=== PATIENT | male | born 1990 | race Caucasian/White ===

== ENCOUNTER 2023-08-22 06:43 | Emergency (ER) | payer MEDICAID ==
[~2023-08-22] VITALS: Ht 177.8 cm; Wt 95.5 kg
[2023-08-22 07:02] VITALS: TEMP 98.4
[2023-08-22 07:10] VITALS: BP 169/93; PULSE 78; RESP 14
[2023-08-22] MEDS ORDERED: DOXYCYCLINE HYCLATE 100 MG TABLET PO ONE (07:15)
[2023-08-22] MEDS ORDERED: CefTRIAXone SODIUM 1 GM/VIAL IM ONE (07:15)
[2023-08-22] MEDS ORDERED: LIDOCAINE/PF 1% 2 ML VIAL IM ONE (07:15)
[2023-08-22 07:19] LABS: APPEARANCE,URINE CLEAR (CLEAR); BILIRUBIN,URINE NEGATIVE (NEGATIVE); COLOR,URINE COLORLESS (YELLOW); GLUCOSE, URINE (UA) NEGATIVE (NEGATIVE); KETONES,URINE NEGATIVE (NEGATIVE); LEUKOCYTE ESTERASE ,URINE NEGATIVE (NEGATIVE); NITRATE,URINE NEGATIVE (NEGATIVE); OCCULT BLOOD,URINE NEGATIVE (NEGATIVE); PH,URINE 6.5 (5.0-8.0); PROTEIN,URINE NEGATIVE (NEGATIVE); SPECIFIC GRAVITIY, URINE 1.006 (1.003-1.030); UROBILINOGEN,URINE <=1.0 mg/dL (<=1.0)
[2023-08-22] MEDS ORDERED: RALTEGRAVIR 400 MG TABLET PO ONE (08:15)
[2023-08-22] MEDS ORDERED: EMTRICITABINE/TENOFOVIR 200-300 MG TABLET PO ONE (08:15)
[2023-08-22 08:24] LABS: ANION GAP 9 mmol/L (8-16); CALCIUM, TOTAL 9.4 mg/dL (8.8-10.5); CARBON DIOXIDE 27 mmol/L (22-29); CHLORIDE 103 mmol/L (98-107); CREATININE 1.24 mg/dL (0.60-1.30); GLOMERULAR FILTR. RATE CALC > 60 mL/min (>60); GLUCOSE,RANDOM 119 mg/dL (70-110); POTASSIUM 4.2 mmol/L (3.5-5.1); SODIUM SERUM 139 mmol/L (136-145); UREA NITROGEN, BLOOD 15 mg/dL (7-18)
[2023-08-22 08:31] LABS: ALANINE AMINOTRANSFERASE 28 U/L (12-78); ALBUMIN 4.3 g/dL (3.4-5.0); ALKALINE PHOSPHATASE 61 U/L (46-116); ASPARTATE AMINOTRANSFERASE 15 U/L (15-37); BILIRUBIN,TOTAL 0.2 mg/dL (0.1-1.0); TOTAL PROTEIN, SERUM 7.9 g/dL (6.4-8.2)
[2023-08-22] MEDS ORDERED: EMTR1TAB53 PO (08:59)
[2023-08-22] MEDS ORDERED: RALT400T PO (08:59)
[2023-08-22] MEDS ORDERED: ONDA-104 PO (08:59)
[2023-08-22] MEDS ORDERED: DOXY-354 PO (08:59)
[2023-08-25 06:07] LABS: HIV 1-2 SCREEN 4TH GEN W/RFLX Non Reactive (Non Reactive)
== END 2023-08-22 09:26 | disposition home or self-care (01) ==
LOC: EMS 06:45
DX: Z11.3 Encounter for screening for infections with a predominantly sexual mode of transmission (principal); R30.0 Dysuria
CPT/HCPCS: 99284; 86592; 80053; 81003; 36415; 87491; 87591; 96372; 87389; J0696; J3490